=== PATIENT | male | born 1950 | race Caucasian/White ===

== ENCOUNTER → 2016-10-21 | Outpatient (CLI) | payer BC, OTHER | END | disposition home or self-care (01) | LOC: C.PATHSPEC 11:11 | DX: D49.2 Neoplasm of unspecified behavior of bone, soft tissue, and skin (principal); D22.9 Melanocytic nevi, unspecified ==

== ENCOUNTER → 2017-10-26 | Outpatient (CLI) | payer OTHER | END | disposition home or self-care (01) | LOC: C.LAB 07:42 | DX: Z13.220 Encounter for screening for lipoid disorders (principal); R73.9 Hyperglycemia, unspecified ==